=== PATIENT | female | born 1995 | race Caucasian/White ===

== ENCOUNTER 2017-08-15 08:41 | Emergency (ER) | payer MEDICAID ==
--- NOTE | 2017-08-15 09:21 | ER Document Report ---
HPI - HPI Patient complains to provider of: Intermittent blurred vision Onset: This morning - 01 29 Onset/Duration: Intermittent, Persistent Pain Level: 0 Context: 22-year-old diabetic woke up at 430 this morning to go to the bathroom and felt very hungry. Her got her food and she stated that her vision was blurring intermittently every 5 minutes lasting for 5 minutes. The blurring is not as bad as it was but she did call EMS to come to the emergency room. I asked her if this never occurred before and she said no. After left the room she then told the nurse I would like a test because this happened once before when I was 9 months ago. No recent illness. EMS Accu- Chek was 104. I asked her why she called the ambulance and it is because they do not have transportation they walk everywhere. Associated Symptoms: None Exacerbated by: Denies Relieved by: Denies Similar symptoms previously: Yes - when she was Recently seen / treated by doctor: No - ROS ROS below otherwise negative: Yes Systems Reviewed and Negative: Yes All other systems reviewed and negative - DERM Skin Color: Normal Past Medical History - General Information source: Patient - Social History Smoking Status: Never Smoker Frequency of alcohol use: None Drug Abuse: None Lives with: Family Family History: Reviewed & Not Pertinent Patient has suicidal ideation: No Patient has homicidal ideation: No - Medical History Medical History: Negative Endocrine Medical History: Reports: Other - DM diet controlled, onset when Renal/ Medical History: Denies: Hx Peritoneal Dialysis Surgical Hx: Negative Vertical Provider Document - CONSTITUTIONAL Agree With Documented VS: Yes Exam Limitations: No Limitations General Appearance: No Apparent Distress - INFECTION CONTROL TRAVEL OUTSIDE OF THE [place] IN LAST 30 DAYS: No - HEENT HEENT: Normal ENT Exam, PERRLA Notes: No fluorescein uptake. 20/40 right, 20/50 left - NECK Neck: Supple. negative: Lymphadenopathy-Left, Lymphadenopathy-Right - RESPIRATORY Respiratory: Breath Sounds Normal, No Respiratory Distress O2 Sat by Pulse Oximetry: 100 - CARDIOVASCULAR Cardiovascular: Regular Rate, Regular Rhythm - MUSCULOSKELETAL/EXTREMETIES Musculoskeletal/Extremeties: MAEW, FROM - NEURO Level of Consciousness: Awake, Alert - DERM Integumentary: Warm, Dry, No Rash Course - Re-evaluation Re-evalutation: 08/15/17 10:19 Urinalysis and test are negative. Patient is supposed to wear prescription glasses but she has not had them for 1 year because they broke. - Vital Signs Vital signs: Temp Pulse Resp BP Pulse Ox 97.9 F 73 16 109/63 100 08/15/17 08:44 08/15/17 08:44 08/15/17 08:44 08/15/17 08:44 08/15/17 08:44 Discharge - Discharge Clinical Impression: intermittent visual blurring Condition: Good Disposition: HOME, SELF-CARE Additional Instructions: you were seen in the er for intermittent blurred vision see the eye doctor to get your eyes checked and replace your broken glasses to er any concerns Referrals: JULIA TAVERAS MD [ACTIVE STAFF] - Follow up as needed
[2017-08-15 09:54] LABS: APPEARANCE,URINE SLIGHTLY-CLOUDY; BILIRUBIN,URINE NEGATIVE (NEGATIVE); GLUCOSE, URINE NEGATIVE (NEGATIVE); KETONES,URINE NEGATIVE (NEGATIVE); LEUKOCYTE ESTERASE,URINE SMALL (NEGATIVE); NITRITE,URINE NEGATIVE (NEGATIVE); PROTEIN,URINE NEGATIVE (NEGATIVE); URINE SPECIFIC GRAVITY 1.025; UROBILINOGEN,URINE NEGATIVE mg/dL (<2.0)
[2017-08-15 10:35] VITALS: BP 110/65
== END 2017-08-15 10:34 | disposition home or self-care (01) ==
LOC: ER 08:41
DX: H53.8 Other visual disturbances (principal); Z91.19 Patient's noncompliance with other medical treatment and regimen; E11.9 Type 2 diabetes mellitus without complications; Z32.02 Encounter for pregnancy test, result negative
CPT/HCPCS: 81001; 81025; 99284

== ENCOUNTER 2018-01-25 14:31 | Emergency (ER) | payer MEDICAID ==
--- NOTE | 2018-01-25 14:39 | ER Document Report ---
ED General - General Stated Complaint: VAGINAL BLEEDING Time Seen by Provider: 01/25/18 14:38 Mode of Arrival: Medic Information source: Patient TRAVEL OUTSIDE OF THE [place] IN LAST 30 DAYS: No - HPI Notes: 22-year-old female 6 para 1 presents 5 months today with complaints of noting some blood when she was morning when she wiped herself after urinating once. Denies any copious vaginal bleeding or clots. Denies any vaginal pain or pelvic pain. Denies any vaginal or pelvic trauma. Patient has been seen by the health department for her [employer] care. Denies any issues with her or complications. Last menstrual period July 2017. Denies fevers, chills, chest pain,palpitations, shortness of breath, dyspnea, nausea, vomiting, diarrhea, abdominal pain, hematuria,blurred vision, double vision, loss of vision, speech changes, LH, dizziness, syncope, headaches, wheezing, ST, URI, neck pain, weakness, bowel or bladder dysfunction, saddle anesthesia, numbness or tingling in bilateral upper or lower extremities equally , muscle paralysis, weakness in bilateral upper or lower extremities equally or rash. Denies IV drug use. - Related Data Allergies/Adverse Reactions: No Known Allergies Allergy (Unverified 08/15/17 08:45) Past Medical History - Social History Smoking Status: Unknown if Ever Smoked Family History: Reviewed & Not Pertinent Renal/ Medical History: Denies: Hx Peritoneal Dialysis Review of Systems - Review of Systems Constitutional: No symptoms reported EENT: No symptoms reported Cardiovascular: No symptoms reported Respiratory: No symptoms reported Gastrointestinal: No symptoms reported Genitourinary: See HPI Female Genitourinary: No symptoms reported Musculoskeletal: No symptoms reported Skin: No symptoms reported Hematologic/Lymphatic: No symptoms reported Neurological/Psychological: No symptoms reported Physical Exam - Vital signs Vitals: Temp Pulse Resp BP Pulse Ox 98.2 F 110 H 16 109/73 98 01/25/18 14:31 01/25/18 14:31 01/25/18 14:31 01/25/18 14:31 01/25/18 14:31 - Notes Notes: PHYSICAL EXAMINATION: GENERAL: Well-appearing, well-nourished and in no acute distress. HEAD: Atraumatic, normocephalic. EYES: Pupils equal round and reactive to light, extraocular movements intact, conjunctiva are normal. ENT: Nares patent, oropharynx clear without exudates. Moist mucous membranes. NECK: Normal range of motion, supple without lymphadenopathy LUNGS: Breath sounds clear to auscultation bilaterally and equal. No wheezes rales or rhonchi. HEART: Regular rate and rhythm without murmurs ABDOMEN: Soft, nontender, nondistended abdomen. No guarding, no rebound. No masses appreciated. fundus above umbilicus Female : External genitalia without erythema, exudate or discharge. Vaginal vault is without discharge. Cervix is of normal color without lesion. There is no bleeding noted. Uterus is noted to be of normal size and nontender. No cervical motion tenderness is seen. No masses are palpated. no blood in the vaginal vault without clots, os closed, no adnexal tenderness or mass. Musculoskeletal: Normal range of motion, no pitting or edema. No cyanosis. NEUROLOGICAL: Cranial nerves grossly intact. Normal speech, normal gait. Normal sensory, motor exams PSYCH: Normal mood, normal affect. SKIN: Warm, Dry, normal turgor, no rashes or lesions noted. Course - Re-evaluation Re-evalutation: 01/25/18 16:56 Healthy 22-year-old female who is 5 months presents for 1 to noted scant blood on toliet paper after she wiped herself and noted scant blood on the toilet paper. Remains afebrile, vitals stable noticed for any leukocytosis , CMP negative for any renal or hepatic dysfunction, pain is 0.46. electrolytes without any disturbances. Urinalysis shows urinary tract infection slight proteinuria, no hematuria. Negative for Trichomonas, yeast infection or bacterial vaginosis. GC pending. Patient will need a 24-hour urinalysis done to assess for proteinuria. She has a positive, no need for rhogam. Pelvic exam did not yield any blood in vaginal vault, cervix os closed. Advised patient that she needs to follow-up with [employer] tomorrow. Pelvic rest. No sexual intercourse, tampon use etc. At this time will discharge with return precautions and follow-up recommendations. Verbal discharge instructions given a the bedside and opportunity for questions given. Medication warnings reviewed. Patient is in agreement with this plan and has verbalized understanding of return precautions and the need for primary care follow-up in the next 24-72 hours. Patient presents with a mild amount of vaginal bleeding in the setting of an early first trimester . Transvaginal ultrasound is unable to visualize an intrauterine at this time. Quantitative beta hCG below the zone of to margination. No active bleeding at time of presentation. She is Rh positive. Patient's abdominal exam is otherwise benign without any focal tenderness. I do not suspect an acute appendicitis, pyelonephritis, cystitis, or bowel obstruction. At this time I have informed the patient that she needs to return to the emergency department or the women's clinic in 48 hours for recheck of her quantitative beta hCG to assess whether or not this is a normal or a possible ectopic .At this time will discharge with return precautions and follow-up recommendations. Verbal discharge instructions given a the bedside and opportunity for questions given. Medication warnings reviewed. Patient is in agreement with this plan and has verbalized understanding of return precautions and the need for primary care follow-up in the next 24-72 hours. 01/25/18 17:40 - Vital Signs Vital signs: Temp Pulse Resp BP Pulse Ox 98.3 F 91 18 108/64 100 01/25/18 17:07 01/25/18 17:07 01/25/18 17:07 01/25/18 17:07 01/25/18 17:07 - Laboratory Result Diagrams: 01/25/18 15:05 01/25/18 15:05 Laboratory results interpreted by me: 01/25/18 01/25/18 01/25/18 14:43 15:05 15:05 Hgb 10.9 L Hct 32.5 L RDW 14.4 H Carbon Dioxide 21 L BUN 6 L Creatinine 0.48 L Glucose 122 H AST 13 L Beta HCG, Quant 62301.00 H Urine Protein 30 H Urine Urobilinogen 4.0 H Ur Leukocyte Esterase LARGE H Discharge - Discharge Clinical Impression: UTI (urinary tract infection) Qualifiers: Urinary tract infection type: acute cystitis Hematuria presence: without hematuria Qualified Code(s): N30.00 - Acute cystitis without hematuria Condition: Good Disposition: HOME, SELF-CARE Instructions: Nitrofurantoin ([facility]), Urinary Tract Infection ([facility]) Prescriptions: Nitrofurantoin Monohyd/M-Cryst [Macrobid 100 mg Capsule] 1 tab PO BID #20 capsule Referrals: LILY SOOD MD [ACTIVE STAFF] - Follow up tomorrow
[2018-01-25 15:19] LABS: APPEARANCE,URINE CLOUDY; BILIRUBIN,URINE NEGATIVE (NEGATIVE); CALCIUM OXALATE CRYSTALS,URINE TOO NUMEROUS TO CNT /HPF; COLOR,URINE YELLOW; GLUCOSE, URINE NEGATIVE (NEGATIVE); KETONES,URINE NEGATIVE (NEGATIVE); LEUKOCYTE ESTERASE,URINE LARGE (NEGATIVE); NITRITE,URINE NEGATIVE (NEGATIVE); PROTEIN,URINE 30 mg/dL (NEGATIVE); URINE SPECIFIC GRAVITY 1.026
[2018-01-25 15:28] LABS: ABSOLUTE LYMPHOCYTES (AUTO) 1.3 10^3/uL (0.5-4.7); ABSOLUTE MONOCYTES (AUTO) 0.5 10^3/uL (0.1-1.4); ABSOLUTE NEUT (AUTO) 6.4 10^3/uL (1.7-8.2); BASOPHILS % (AUTO) 0.1 % (0-2); EOSINOPHILS % (AUTO) 0.4 % (0-6); HEMATOCRIT 32.5 % (36.0-47.0); HEMOGLOBIN 10.9 g/dL (12.0-15.5); MEAN CORPUSCULAR HGB CONC 33.5 g/dL (32.0-36.0); MEAN CORPUSCULAR VOLUME 86 fl (80-97); MONOCYTES % (AUTO) 6.3 % (3-13); PLATELET COUNT 277 10^3/uL (150-450); RED BLOOD COUNT 3.76 10^6/uL (3.72-5.28); RED CELL DISTRIBUTION WIDTH 14.4 % (11.5-14.0); SEGMENTED NEUTROPHILS % (AUTO) 77.2 % (42-78); TOTAL CELLS COUNTED % (AUTO) 100 %; WHITE BLOOD COUNT 8.3 10^3/uL (4.0-10.5)
[2018-01-25 15:38] LABS: ALANINE AMINOTRANSFERASE 14 U/L (9-52); ALBUMIN 3.5 g/dL (3.5-5.0); ALKALINE PHOSPHATASE 99 U/L (38-126); ANION GAP 15 (5-19); ASPARTATE AMINO TRANSFERASE 13 U/L (14-36); BILIRUBIN,DIRECT 0.2 mg/dL (0.0-0.4); BILIRUBIN,TOTAL 0.2 mg/dL (0.2-1.3); BLOOD UREA NITROGEN 6 mg/dL (7-20); CALCIUM 9.5 mg/dL (8.4-10.2); CARBON DIOXIDE 21 mmol/L (22-30); CHLORIDE 105 mmol/L (98-107); GLUCOSE 122 mg/dL (75-110); POTASSIUM 4.2 mmol/L (3.6-5.0); TOTAL PROTEIN 6.7 g/dL (6.3-8.2)
[2018-01-25 16:39] LABS: T.VAGINALIS (WET MOUNT) NO TRICHOMONAS SEEN; WBCS (WET MOUNT) NO WBCS SEEN; YEAST (WET MOUNT) NO YEAST SEEN
[2018-01-25 16:40] LABS: RBCS (WET MOUNT) NO RBCS SEEN
[2018-01-25 16:54] LABS: URINE AMPHETAMINES SCREEN NEGATIVE; URINE BARBITURATES SCREEN NEGATIVE; URINE BENZODIAZEPINES SCREEN NEGATIVE; URINE COCAINE SCREEN NEGATIVE; URINE MARIJUANA (THC) SCREEN NEGATIVE; URINE METHADONE SCREEN NEGATIVE; URINE PHENCYCLIDINE SCREEN NEGATIVE
--- NOTE | 2018-01-25 17:03 | RADIOLOGY REPORT (SQ) ---
EXAM DESCRIPTION: U/S OB LIMITED COMPLETED DATE/TIME: 01/25/2018 4:55 pm REASON FOR STUDY: vaginal bleeding COMPARISON: None. TECHNIQUE: Limited transabdominal grayscale ultrasound for evaluation of specific requested obstetri tobias parameters. LIMITATIONS: None. FINDINGS: CERVICAL LENGTH: 3.6 cm. Closed. NAIMA: 11.0 cm. FHR: 155 beats per minute. PRESENTATION: Transverse. PLACENTA: Posterior. OTHER: No other significant findings. IMPRESSION: LIMITED OBSTETRICAL ULTRASOUND WITH MEASURED PARAMETERS DELINEATED ABOVE. Trimester of : Second trimester - 13 weeks 1 day to 27 weeks 6 days. TECHNICAL DOCUMENTATION: JOB ID: [id number] [employer]- All Rights Reserved Reading location - IP/workstation name: [email or web address]
[2018-01-25 17:08] VITALS: BP 108/64
[2018-01-25 18:01] LABS: CHLAM PCR NOT DETECTED (NOT DETECT); GON PCR NOT DETECTED (NOT DETECT)
== END 2018-01-25 18:03 | disposition home or self-care (01) ==
LOC: ER 14:31
DX: O23.12 Infections of bladder in pregnancy, second trimester (principal); O46.92 Antepartum hemorrhage, unspecified, second trimester; Z3A.20 20 weeks gestation of pregnancy
CPT/HCPCS: 36415; 76815; 80053; 80307; 81001; 84702; 85025; 86900; 86901; 87086; 87210; 87491; 87591; 99284

== ENCOUNTER 2018-02-22 11:48 | Emergency (ER) | payer MEDICAID ==
[2018-02-22] MEDS ORDERED: ONDANSETRON 4 MG TAB.RAPDIS PO ONE (12:10)
[2018-02-22] MEDS ORDERED: RINGERS SOLUTION,LACTATED 1,000 ML IV ONE (12:10)
--- NOTE | 2018-02-22 12:12 | ER Document Report ---
ED Medical Screen (RME) - General Chief Complaint: Near Syncope Stated Complaint: DIZZY Time Seen by Provider: 02/22/18 12:06 Notes: RAPID MEDICAL EVALUATION DISCLOSURE I have seen this patient as part of a Rapid Medical Evaluation and, if applicable, placed any initially appropriate orders. The patient will be seen and fully evaluated, including a full history and physical exam, by a provider ( in Main ED or Fast Track) when a room becomes available. 22F approx 28wk gestation here w c/o lightheadedness started this AM and n/v/d ongoing throughout the entire . She denies any cough congestion runny nose ST abd pain. She states "I don't like drinking water". Instead, she hydrates herself with plenty of Mountain Dew. She has not tried anything for the symptoms ie water. EXAM CTAB RRR No abd TTP TRAVEL OUTSIDE OF THE [place] IN LAST 30 DAYS: No - Related Data Allergies/Adverse Reactions: No Known Allergies Allergy (Unverified 08/15/17 08:45) Past Medical History Renal/ Medical History: Denies: Hx Peritoneal Dialysis Psychiatric Medical History: Reports: Hx Bipolar Disorder - & anxiety
[2018-02-22 12:17] VITALS: BP 120/71
[2018-02-22 13:05] LABS: ABSOLUTE LYMPHOCYTES (AUTO) 1.3 10^3/uL (0.5-4.7); ABSOLUTE MONOCYTES (AUTO) 0.6 10^3/uL (0.1-1.4); ABSOLUTE NEUT (AUTO) 5.2 10^3/uL (1.7-8.2); BASOPHILS % (AUTO) 0.3 % (0-2); EOSINOPHILS % (AUTO) 0.4 % (0-6); HEMATOCRIT 30.2 % (36.0-47.0); HEMOGLOBIN 9.9 g/dL (12.0-15.5); LYMPHOCYTES % (AUTO) 18.8 % (13-45); MEAN CORPUSCULAR HEMOGLOBIN 28.7 pg (27.0-33.4); MEAN CORPUSCULAR HGB CONC 32.9 g/dL (32.0-36.0); MEAN CORPUSCULAR VOLUME 87 fl (80-97); PLATELET COUNT 251 10^3/uL (150-450); RED BLOOD COUNT 3.47 10^6/uL (3.72-5.28); RED CELL DISTRIBUTION WIDTH 14.8 % (11.5-14.0); SEGMENTED NEUTROPHILS % (AUTO) 72.5 % (42-78); TOTAL CELLS COUNTED % (AUTO) 100 %; WHITE BLOOD COUNT 7.1 10^3/uL (4.0-10.5)
[2018-02-22 13:19] LABS: ALANINE AMINOTRANSFERASE 14 U/L (9-52); ALBUMIN 3.7 g/dL (3.5-5.0); ALKALINE PHOSPHATASE 96 U/L (38-126); ANION GAP 11 (5-19); ASPARTATE AMINO TRANSFERASE 23 U/L (14-36); BILIRUBIN,DIRECT 0.3 mg/dL (0.0-0.4); BILIRUBIN,TOTAL 0.4 mg/dL (0.2-1.3); BLOOD UREA NITROGEN 8 mg/dL (7-20); CALCIUM 9.2 mg/dL (8.4-10.2); CARBON DIOXIDE 23 mmol/L (22-30); CHLORIDE 108 mmol/L (98-107); GLUCOSE 101 mg/dL (75-110); LIPASE 30.4 U/L (23-300); POTASSIUM 3.7 mmol/L (3.6-5.0); SODIUM 142.1 mmol/L (137-145); TOTAL PROTEIN 7.1 g/dL (6.3-8.2)
== END 2018-02-22 12:35 | disposition left against medical advice (07) ==
LOC: ER 11:48
DX: O26.899 Other specified pregnancy related conditions, unspecified trimester (principal); R42 Dizziness and giddiness; Z3A.00 Weeks of gestation of pregnancy not specified; Z53.20 Procedure and treatment not carried out because of patient's decision for unspecified reasons
CPT/HCPCS: 36415; 80053; 83690; 85025; 99281

== ENCOUNTER 2018-08-19 16:07 | Emergency (ER) | payer MEDICAID ==
[2018-08-19 17:49] LABS: APPEARANCE,URINE SLIGHTLY-CLOUDY; BILIRUBIN,URINE NEGATIVE (NEGATIVE); COLOR,URINE YELLOW; GLUCOSE, URINE NEGATIVE (NEGATIVE); KETONES,URINE NEGATIVE (NEGATIVE); LEUKOCYTE ESTERASE,URINE SMALL (NEGATIVE); NITRITE,URINE NEGATIVE (NEGATIVE); PROTEIN,URINE NEGATIVE (NEGATIVE); URINE SPECIFIC GRAVITY 1.025
--- NOTE | 2018-08-19 18:02 | ER Document Report ---
ED Respiratory Problem - General Chief Complaint: Cold Symptoms Stated Complaint: COLD SYMPTOMS Time Seen by Provider: 08/19/18 17:04 Mode of Arrival: Ambulatory Information source: Patient Notes: Patient is a 23-year-old female comes emergency room with 2 main complaints 1 she has not had a period in a month and she thinks she might be into she has been sick for 3 months on and off with congestion runny nose and cough. States that occasionally she because of some green slime stuff. She does not smoke but she calls like she has been smoking. Her biggest concern is that she has had the. In the past month she is 5 para 2 she believes with 3 spontaneous abortions her last delivery was in May of this past year. Patient denies breast-feeding. TRAVEL OUTSIDE OF THE [place] IN LAST 30 DAYS: No - HPI Patient complains to provider of: Cough, Short of breath Onset: Other - 3 months Quality of pain: No pain Severity: Mild Pain Level: 0 Context: denies: Smoker Short of Breath: Mild Cough: Nonproductive Sputum amount: None Sputum color: Clear Sputum consistency: Thick Similar symptoms previously: Yes Recently seen / treated by doctor: No - Related Data Allergies/Adverse Reactions: No Known Allergies Allergy (Unverified 08/15/17 08:45) Past Medical History - General Information source: Patient - Social History Smoking Status: Never Smoker Cigarette use (# per day): No Chew tobacco use (# tins/day): No Smoking Education Provided: No Frequency of alcohol use: None Drug Abuse: None Family History: Reviewed & Not Pertinent Patient has suicidal ideation: No Patient has homicidal ideation: No Renal/ Medical History: Denies: Hx Peritoneal Dialysis Psychiatric Medical History: Reports: Hx Bipolar Disorder - & anxiety Review of Systems - Review of Systems Constitutional: See HPI, Fever, Weakness EENT: Ear discharge, Nose congestion, Nose discharge, Sinus pressure, Sinus discharge, Throat pain Cardiovascular: No symptoms reported Respiratory: See HPI, Cough, Short of breath, Wheezing Gastrointestinal: No symptoms reported Genitourinary: No symptoms reported Female Genitourinary: No symptoms reported Musculoskeletal: No symptoms reported Skin: No symptoms reported Hematologic/Lymphatic: No symptoms reported Neurological/Psychological: No symptoms reported -: Yes All other systems reviewed and negative Physical Exam - Vital signs Vitals: Temp Pulse Resp BP Pulse Ox 98.3 F 90 16 116/70 99 08/19/18 16:21 08/19/18 16:21 08/19/18 16:21 08/19/18 16:21 08/19/18 16:21 Interpretation: Normal - Notes Notes: PHYSICAL EXAMINATION: GENERAL: Well-appearing, well-nourished and in no acute distress. HEAD: Atraumatic, normocephalic. EYES: Pupils equal round and reactive to light, extraocular movements intact, conjunctiva are normal. ENT: Examination of head and upper airway showed nasal mucosa to be mildly erythematous and not really any edema noted to home. Bilateral nasal congestion is there. No frontal or maxillary sinus tenderness to palpation. Bilateral TMs bulging slightly bilaterally with air-fluid levels noted. Posterior pharynx shows moderate amount of erythema tonsils are not enlarged there is no exudate noted but there is drainage noted in the posterior pharynx is greenish yellow in color. NECK: Normal range of motion, supple without lymphadenopathy LUNGS: Breath sounds clear to auscultation bilaterally and equal. No wheezes rales or rhonchi. HEART: Regular rate and rhythm without murmurs ABDOMEN: Soft, nontender, nondistended abdomen. No guarding, no rebound. No masses appreciated. Female : deferred Musculoskeletal: Normal range of motion, no pitting or edema. No cyanosis. NEUROLOGICAL: . Normal speech, normal gait. Normal sensory, motor exams PSYCH: Normal mood, normal affect. SKIN: Warm, Dry, normal turgor, no rashes or lesions noted. Course - Re-evaluation Re-evalutation: 08/19/18 20:53 Patient's course of stay was relatively benign here in the emergency room. Primarily I believe she want to disturb urgency result. She informed me that reason she did not do a home e.p.t. study was because she did not have enough money. She states that she has been her last time on a housing. And with her history the 5 pregnancies and she is only 23 years old she was concerned that she would be at this time as well. So given that she was negative patient agreed to sign a release. She did have some upper airway nasal congestion with some drainage so we did put her on an antihistamine decongestant and she will return to ER if she has any concerns or problems. - Vital Signs Vital signs: Temp Pulse Resp BP Pulse Ox 98.7 F 95 20 96/67 L 98 08/19/18 19:04 08/19/18 19:04 08/19/18 19:04 08/19/18 19:04 08/19/18 19:04 - Laboratory Laboratory results interpreted by me: 08/19/18 17:24 Urine Urobilinogen 2.0 H Ur Leukocyte Esterase SMALL H Urine Ascorbic Acid 40 H Discharge - Discharge Clinical Impression: Upper respiratory infection Qualifiers: URI type: unspecified viral URI Qualified Code(s): J06.9 - Acute upper respiratory infection, unspecified Condition: Stable Disposition: HOME, SELF-CARE Instructions: Fever ([facility]), Upper Respiratory Illness ([facility]), Viral Syndrome ([facility] ) Additional Instructions: First onto you are not your urine came back negative for . Second of all thank you of this upper respiratory cold is going around and hitting pretty much everyone. I would have put you on a little nasal steroid and we will put you on something to dry up the head. That should be all you need to start feeling better. Since you are not breast-feeding you can take very much any medication that we put you on. If for any reason you start to breast-feed do not take the medication was cleared by your physician. Should you have any concerns or problems return here for repeat check. Prescriptions: Fluticasone Propionate [Flonase Nasal Tiline 50 Mcg/Tiline 16 gm] 1 spray NASL Q12 #1 inhaler Pseudoephedrine HCl [Sudafed 12 Hour] 120 mg PO BID #20 tablet.er Referrals: [facility] [NO LOCAL MD] - Follow up as needed
[2018-08-19 19:05] VITALS: BP 96/67
== END 2018-08-19 19:05 | disposition home or self-care (01) ==
LOC: ER 16:07
DX: J06.9 Acute upper respiratory infection, unspecified (principal); B97.89 Other viral agents as the cause of diseases classified elsewhere; R05 Cough; R09.81 Nasal congestion; R06.02 Shortness of breath; H92.10 Otorrhea, unspecified ear; R06.2 Wheezing; J34.89 Other specified disorders of nose and nasal sinuses; R07.0 Pain in throat; Z32.02 Encounter for pregnancy test, result negative
CPT/HCPCS: 81001; 81025; 99283

== ENCOUNTER 2020-08-23 11:06 | Emergency (ER) | payer MEDICAID ==
--- NOTE | 2020-08-23 11:45 | ER Document Report ---
ED Medical Screen (RME) - General Chief Complaint: Other Stated Complaint: ABDOMINAL PAIN, PREGNACY TEST Time Seen by Provider: 08/23/20 11:40 Notes: HPI: 25-year-old female presenting for multiple complaints. Patient essentially wants a test. States that her last menstrual cycle was May 15. She has had intermittent spotting, intermittent episodes of vaginal discharge. Patient is taken multiple tests at home and they are all negative she called her [facility] [employer] [facility] month and they apparently told her to come to the emergency department to get a blood test because they could not do such a thing out of the office. Patient complains of intermittent low back pain no dysuria. PHYSICAL EXAMINATION: Obese abdomen limited exam in the sitting position unable to definitively palpate a gravid uterus. No specific tenderness on palpation of the abdomen exam deferred in triage I have greeted and performed a rapid initial assessment of this patient. A comprehensive ED assessment and evaluation of the patient, analysis of test results and completion of medical decision making process will be conducted by an additional ED providers. TRAVEL OUTSIDE OF THE [place] IN LAST 30 DAYS: No - Related Data Allergies/Adverse Reactions: lurasidone [From Latuda] Allergy (Verified 08/23/20 11:34) Past Medical History - Social History Chew tobacco use (# tins/day): No Frequency of alcohol use: None Drug Abuse: None Renal/ Medical History: Denies: Hx Peritoneal Dialysis Psychiatric Medical History: Reports: Hx Bipolar Disorder - & anxiety Physical Exam - Vital signs Vitals: Temp Pulse BP Pulse Ox 98.0 F 98 137/66 H 99 08/23/20 11:17 08/23/20 11:17 08/23/20 11:17 08/23/20 11:17 Course - Vital Signs Vital signs: Temp Pulse Resp BP Pulse Ox 98.0 F 98 137/66 H 99 08/23/20 11:17 08/23/20 11:17 08/23/20 11:17 08/23/20 11:17
[2020-08-23 12:31] LABS: APPEARANCE,URINE SLIGHTLY-CLOUDY; BILIRUBIN,URINE NEGATIVE (NEGATIVE); COLOR,URINE YELLOW; GLUCOSE, URINE NEGATIVE (NEGATIVE); KETONES,URINE NEGATIVE (NEGATIVE); LEUKOCYTE ESTERASE,URINE TRACE (NEGATIVE); NITRITE,URINE NEGATIVE (NEGATIVE); PROTEIN,URINE NEGATIVE (NEGATIVE); URINE SPECIFIC GRAVITY 1.027; UROBILINOGEN,URINE NEGATIVE mg/dL (<2.0)
[2020-08-23 12:43] LABS: ABSOLUTE BASOPHILS # (AUTO) 0.1 10^3/uL (0.0-0.2); ABSOLUTE EOSINOPHILS # (AUTO) 0.1 10^3/uL (0.0-0.6); ABSOLUTE LYMPHOCYTES (AUTO) 3.2 10^3/uL (0.5-4.7); ABSOLUTE MONOCYTES (AUTO) 0.7 10^3/uL (0.1-1.4); ABSOLUTE NEUT (AUTO) 5.1 10^3/uL (1.7-8.2); EOSINOPHILS % (AUTO) 1.3 % (0-6); HEMATOCRIT 38.1 % (36.0-47.0); HEMOGLOBIN 12.7 g/dL (12.0-15.5); LYMPHOCYTES % (AUTO) 34.3 % (13-45); MEAN CORPUSCULAR HEMOGLOBIN 29.3 pg (27.0-33.4); MEAN CORPUSCULAR HGB CONC 33.4 g/dL (32.0-36.0); MEAN CORPUSCULAR VOLUME 88 fl (80-97); MONOCYTES % (AUTO) 7.9 % (3-13); RED BLOOD COUNT 4.34 10^6/uL (3.72-5.28); RED CELL DISTRIBUTION WIDTH 13.5 % (11.5-14.0); SEGMENTED NEUTROPHILS % (AUTO) 55.5 % (42-78); TOTAL CELLS COUNTED % (AUTO) 100 %; WHITE BLOOD COUNT 9.2 10^3/uL (4.0-10.5)
--- NOTE | 2020-08-23 12:50 | RADIOLOGY REPORT (SQ) ---
EXAM DESCRIPTION: U/S OB TRANSVAG W/DOPPLER IMAGES COMPLETED DATE/TIME: 08/23/2020 12:29 pm REASON FOR STUDY: pelvic pain preg COMPARISON: None. TECHNIQUE: Transvaginal static and realtime grayscale images acquired of the pelvis. Additional paola cted spectral and color Doppler images recorded. All images stored on PACs. CLINICAL AGE: Unknown. BHCG: Pending. LIMITATIONS: None. FINDINGS: UTERUS: No visualized intrauterine . RIGHT ADNEXA: Normal ovary with normal vascular flow. No adnexal free fluid. No adnexal masses. LEFT ADNEXA: Normal ovary with normal vascular flow. No adnexal free fluid. 2.6 cm cyst. FREE FLUID: None. OTHER: No other significant finding. IMPRESSION: NO VISUALIZED INTRA- OR EXTRAUTERINE . CYST IN THE LEFT OVARY. bHCG LEVEL NOT AVAILABLE FOR CORRELATION WITH US FINDINGS. ECTOPIC CANNOT BE EXCLUDED. FOLLOW-UP ULTRASOUND AND SERIAL BHCG LEVELS STRONGLY RECOMMENDED TO ACCURATELY ASSESS STATU S. TECHNICAL DOCUMENTATION: JOB ID: [id number] [employer]- All Rights Reserved Reading location - IP/workstation name: [email or web address]
[2020-08-23 12:56] LABS: ALBUMIN 4.3 g/dL (3.5-5.0); ALKALINE PHOSPHATASE 99 U/L (38-126); ANION GAP 11 (5-19); ASPARTATE AMINO TRANSFERASE 36 U/L (14-36); BILIRUBIN,DIRECT 0.1 mg/dL (0.0-0.4); BILIRUBIN,TOTAL 0.6 mg/dL (0.2-1.3); BLOOD UREA NITROGEN 12 mg/dL (7-20); CALCIUM 9.9 mg/dL (8.4-10.2); CARBON DIOXIDE 25 mmol/L (22-30); CHLORIDE 105 mmol/L (98-107); GLUCOSE 113 mg/dL (75-110); POTASSIUM 4.5 mmol/L (3.6-5.0); TOTAL PROTEIN 7.4 g/dL (6.3-8.2)
[2020-08-23 13:18] LABS: PLATELET COUNT 202 10^3/uL (150-450)
[2020-08-23] MEDS ORDERED: CEPHALEXIN 500 MG CAPSULE PO ONE (16:11)
--- NOTE | 2020-08-23 16:12 | ER Document Report ---
ED General - General Chief Complaint: Other Stated Complaint: ABDOMINAL PAIN, PREGNACY TEST Time Seen by Provider: 08/23/20 11:40 Notes: HPI: 25-year-old female who presents today stating she has had no menstrual period for the last month and a half. She is coming off a control patch. She states some mild suprapubic abdominal discomfort. No fevers, vomiting, diarrhea, upper abdominal pain, or flank pain. No history of kidney stones. ROS: See HPI All other review of systems reviewed and otherwise negative Reviewed vital signs and nursing note as charted by RN. PHYSICAL EXAM: CONSTITUTIONAL: Alert and oriented and responds appropriately to questions. Well-appearing; well-nourished HEAD: Normocephalic; atraumatic EYES: Sclerae non-icteric ENT: Normal nose; no rhinorrhea; moist mucous membranes; pharynx without lesions noted NECK: Supple without meningismus; non-tender; no cervical lymphadenopathy, no masses CARD: Regular rate and rhythm; no murmurs; symmetric distal pulses RESP: Normal chest excursion without splinting or tachypnea; breath sounds clear and equal bilaterally; no wheezes, no rhonchi, no rales ABD/GI: Normal bowel sounds; elevated BMI; soft, no focal tenderness, rebound or guarding. No palpable masses : With instructional technology teacher present I did perform a pelvic examination showing no obvious external or internal lesions. No cervical motion tenderness. No adnexal masses or tenderness BACK: The back appears normal and is non-tender to palpation EXT: Normal ROM in all joints; non-tender to palpation; no edema SKIN: No acute lesions noted NEURO: CN 2-12 intact; 5/5 bilateral upper and lower extremity strength with sensation intact to light touch PSYCH: The patient's mood and manner are appropriate. Grooming and personal hygiene are appropriate. TRAVEL OUTSIDE OF THE [place] IN LAST 30 DAYS: No - Related Data Allergies/Adverse Reactions: lurasidone [From Latuda] Allergy (Verified 08/23/20 11:34) Past Medical History - Social History Smoking Status: Current Every Day Smoker Chew tobacco use (# tins/day): No Frequency of alcohol use: None Drug Abuse: None Family History: Reviewed & Not Pertinent Patient has homicidal ideation: No Renal/ Medical History: Denies: Hx Peritoneal Dialysis Psychiatric Medical History: Reports: Hx Bipolar Disorder - & anxiety Physical Exam - Vital signs Vitals: Temp Pulse BP Pulse Ox 98.0 F 98 137/66 H 99 08/23/20 11:17 08/23/20 11:17 08/23/20 11:17 08/23/20 11:17 Course - Re-evaluation Re-evalutation: Given the above history and physical examination in this 25-year-old female we did perform a urinalysis, pelvic exam, basic labs, test. Patient's abdominal initial and repeat exams are very benign. Vital signs are stable. 08/23/20 16:12 Minimal leukocytes in the urine. I will start the patient on Keflex. Pelvic examination as recorded. Labs pending. 08/23/20 16:37 Urine analysis as recorded. Pelvic exam as recorded. Pelvic labs as recorded. GC/chlamydia is pending. Patient will be discharged home with a course of Keflex with strict return precautions. - Vital Signs Vital signs: Temp Pulse Resp BP Pulse Ox 98.0 F 98 137/66 H 99 08/23/20 11:17 08/23/20 11:17 08/23/20 11:17 08/23/20 11:17 - Laboratory Result Diagrams: 08/23/20 12:23 08/23/20 12:23 Laboratory results interpreted by me: 08/23/20 08/23/20 11:56 12:23 Glucose 113 H Ur Leukocyte Esterase TRACE H Discharge - Discharge Clinical Impression: Pelvic pain, Leukocytes in urine Condition: Good Disposition: HOME, SELF-CARE Additional Instructions: Come back immediately for any increased pelvic pain, fever, vomiting, inability urinate, or any other acute problems. Please make sure that you take the antibiotics as prescribed and follow-up with the primary care physician for reassessment. Prescriptions: Cephalexin Monohydrate [Keflex 500 mg Capsule] 500 mg PO Q6H 5 Days capsule
[2020-08-23 16:23] LABS: T.VAGINALIS (WET MOUNT) NO TRICHOMONAS SEEN; WBCS (WET MOUNT) RARE WBCS SEEN; YEAST (WET MOUNT) NO YEAST SEEN
[2020-08-23 16:48] VITALS: BP 124/72
[2020-08-23 17:48] LABS: CHLAM PCR NOT DETECTED (NOT DETECT)
== END 2020-08-23 16:49 | disposition home or self-care (01) ==
LOC: ER 11:06
DX: N83.202 Unspecified ovarian cyst, left side (principal); R10.2 Pelvic and perineal pain; R39.89 Other symptoms and signs involving the genitourinary system; F17.200 Nicotine dependence, unspecified, uncomplicated; Z88.8 Allergy status to other drugs, medicaments and biological substances
CPT/HCPCS: 36415; 76817; 80053; 81001; 84702; 85025; 87210; 87491; 87591; 93976; 99284